=== PATIENT | male | born 1985 | race Caucasian/White ===

== ENCOUNTER 2017-03-21 11:02 | Emergency (ER) | payer SELFPAY ==
[~2017-03-21] VITALS: Ht 180.3 cm; Wt 96.2 kg
--- NOTE | 2017-03-21 11:08 | NUR ---
PT BIB PD TO ER BED 12. HERE FOR MEDICAL AND PSYCH EVAL. PER REPORT, PT WAS TALKING ABOUT SUICIDE AND DYING LAST NIGHT. UPON ASSESSMENT PT IS VERBALLY RESPONSIVE STATING HE IS NOT SUICIDAL. APPEARS ANXIOUS. DENIES ANY PAIN AND DISCOMFORT. AWAITING MD EVAL.
[2017-03-21 12:31] LABS: BASOPHILS # (AUTO) 0.1 /CMM (0.0-0.2); BASOPHILS % (AUTO) 1.2 % (0.0-2.0); EOSINOPHILS # (AUTO) 0.1 /CMM (0.0-0.7); EOSINOPHILS % (AUTO) 0.7 % (0.0-6.0); HEMATOCRIT 48 % (39-51); HEMOGLOBIN 16.7 g/dL (13.5-17.5); LYMPHOCYTES # (AUTO) 1.2 /CMM (0.8-4.8); LYMPHOCYTES % (AUTO) 12.5 % (20.0-44.0); MEAN CORPUSCULAR HEMOGLOBIN 30 PG (26.0-33.0); MEAN CORPUSCULAR HGB CONC 35 g/dl (31.0-36.0); MEAN CORPUSCULAR VOLUME 86 fL (80-96); MONOCYTES # (AUTO) 0.3 /CMM (0.1-1.30); MONOCYTES % (AUTO) 2.7 % (2.0-12.0); NEUTROPHILS # (AUTO) 8.2 /CMM (1.8-8.9); NEUTROPHILS % (AUTO) 82.9 % (43.0-81.0); PLATELET COUNT (AUTO) 231 /CMM (150-450); RDW COEFFICIENT OF VARIATION 12.7 (11.5-15.0); RED BLOOD CELL COUNT(AUTO) 5.57 MIL/uL (4.5-6.0); WHITE BLOOD COUNT (AUTO) 9.9 K/uL (4.3-11.0)
[2017-03-21 12:48] LABS: CALCIUM, SERUM 9.6 mg/dL (8.5-10.1); POTASSIUM 4.4 mmol/L (3.5-5.1)
[2017-03-21 12:50] LABS: ALBUMIN 4.6 g/dL (3.4-5.0); BILIRUBIN,DIRECT 0.1 mg/dL (0.0-0.2); BILIRUBIN,TOTAL 0.5 mg/dL (0.2-1.0); TOTAL PROTEIN, SERUM 8.1 g/dL (6.4-8.2)
--- NOTE | 2017-03-21 13:47 | NUR ---
CALLED [facility] FOR PSYCH EVAL, NO ANSWER, LEFT MESSAGE ON VOICEMAIL
--- NOTE | 2017-03-21 13:55 | NUR ---
RECEIVED CALL BACK FROM [facility], SHE SAID SHE WILL SEND STEVEN WILCOX, TO COME SEE PT
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
[2017-03-21 14:52] VITALS: BP 125/62
--- NOTE | 2017-03-21 14:52 | NUR ---
MEDICALLY AND PSYCH CLEARED. PT D/C IN STABLE CONDITION.
== END 2017-03-21 14:53 | disposition home or self-care (01) ==
LOC: ER 11:06
DX: F10.129 Alcohol abuse with intoxication, unspecified (principal); F41.9 Anxiety disorder, unspecified; Z63.9 Problem related to primary support group, unspecified
CPT/HCPCS: 36415; 80048; 80076; 80329; 85025; 99284; A4606; G0480 ×2; Z7610